=== PATIENT | male | born 1975 | race Two or more races ===

== ENCOUNTER 2022-05-19 16:20 | Emergency (ER) | payer OTHER ==
[~2022-05-19] VITALS: Ht 180.3 cm; Wt 97.1 kg
[2022-05-19] MEDS ORDERED: PROMACTA75 MG PO (16:58)
[2022-05-19] MEDS ORDERED: ELIQUIS5 MG PO (16:59)
== END 2022-05-19 21:02 | disposition home or self-care (01) ==
LOC: ER 16:20
DX: R10.11 Right upper quadrant pain (principal); I10 Essential (primary) hypertension; Z20.828 Contact with and (suspected) exposure to other viral communicable diseases